=== PATIENT | male | born 1945 | race Caucasian/White ===

== ENCOUNTER 2018-07-01 13:03 | Outpatient (CLI) | payer MEDICARE, BC ==
[~2018-07-01] VITALS: Ht 185.4 cm; Wt 103.4 kg
[2018-07-01 14:33] VITALS: BP 110/75
[2018-07-01] MEDS ORDERED: ELIQUIS5 MG PO (14:46)
[2018-07-01] MEDS ORDERED: LEVOTHYROXINE125 MCG ORAL (14:46)
[2018-07-01] MEDS ORDERED: METFORMIN HCL850 M1 ORAL (14:46)
[2018-07-01] MEDS ORDERED: AZOR 10-20 MG1 EACH ORAL (14:46)
[2018-07-01] MEDS ORDERED: FOLIC ACID1 MG ORAL (14:46)
[2018-07-01] MEDS ORDERED: BYSTOLIC10 MG ORAL (14:46)
[2018-07-01] MEDS ORDERED: CRESTOR20 MG ORAL (14:46)
[2018-07-01] MEDS ORDERED: DONEPEZIL HCL10 M2 ORAL (14:46)
--- NOTE | 2018-07-02 02:30 | Consultation ---
DATE OF CONSULTATION: 07/01/2018 REASON FOR CONSULTATION: Referral for screening colonoscopy. HISTORY: This is a very pleasant 73-year-old male with multiple medical problems, which I will dictate in a second, who was referred to us for further evaluation for screening colonoscopy. He had a colonoscopy about 5 years ago. He had two polyps at that time. Denies any gastrointestinal symptoms at this time. PAST MEDICAL HISTORY: 1. Atrial fibrillation. 2. Hypertension. 3. Hypercholesterolemia. 4. Diverticulosis. 5. Sleep apnea. 6. Hypothyroidism. PAST SURGICAL HISTORY: Tonsillectomy. MEDICATIONS: Please see medication reconciliation list. ALLERGIES: No known allergies. FAMILY HISTORY: Father had a lung cancer and mom had breast cancer. SOCIAL HISTORY: The patient denies any tobacco, alcohol, or drug abuse. REVIEW OF SYSTEMS: A 10-point review of systems was performed and pertinent positives in HPI. PHYSICAL EXAMINATION: VITAL SIGNS: The patient is afebrile. Blood pressure is 110/75, pulse 84, and respirations 20. HEENT: Normocephalic and atraumatic. Sclerae anicteric. NECK: Supple. No evidence of lymphadenopathy. CARDIOVASCULAR: Regular rhythm. Plus S1 and S2. No obvious murmur. LUNGS: Clear to auscultation bilaterally. ABDOMEN: Soft bowel sounds. Soft and nontender. No rebound. No guarding. No peritoneal sign. EXTREMITIES: No cyanosis. No clubbing. No edema. ASSESSMENT: A 73-year-old male with history of colonic polyps in the past was referred to us for screening colonoscopy evaluation. PLAN: The patient is scheduled for 07/23/2018 for colonoscopy. He was given instruction for . The patient was also told to stop the Eliquis two days before the procedure. I want to thank, , for this kind referral. Dagoberto Ruby M.D. DR: ARIEL JOB#: [id number] CC:
== END 2018-07-01 15:53 | disposition home or self-care (01) ==
LOC: PAN 13:03
DX: K57.90 Diverticulosis of intestine, part unspecified, without perforation or abscess without bleeding (principal); Z86.010 Personal history of colon polyps; I10 Essential (primary) hypertension; E78.00 Pure hypercholesterolemia, unspecified; G47.30 Sleep apnea, unspecified; E03.9 Hypothyroidism, unspecified; Z80.1 Family history of malignant neoplasm of trachea, bronchus and lung; Z80.3 Family history of malignant neoplasm of breast

== ENCOUNTER 2018-08-12 13:05 | Outpatient (CLI) | payer MEDICARE, BC ==
[~2018-08-12 13:05] MED LIST: AZOR 10-20 MG1 EACH ORAL; BYSTOLIC10 MG ORAL; CRESTOR20 MG ORAL; DONEPEZIL HCL10 M2 ORAL; ELIQUIS5 MG PO; FOLIC ACID1 MG ORAL; LEVOTHYROXINE125 MCG ORAL; METFORMIN HCL850 M1 ORAL
--- NOTE | 2018-08-12 13:26 | GI Progress Note ---
Assessment/Plan Problems: (1) Diverticulosis ICD Codes: K57.90 - Diverticulosis of intestine, part unspecified, without perforation or abscess without bleeding SNOMED: 405932962 (2) Colon polyps ICD Codes: K63.5 - Polyp of colon SNOMED: 39877052 (3) Hemorrhoids ICD Codes: K64.9 - Unspecified hemorrhoids SNOMED: 39992937 Assessment/Plan repeat colon in 3 years Subjective Gastrointestinal/Abdominal: Reports: no symptoms Objective General Appearance: alert Cardiovascular: normal rate Respiratory/Chest: lungs clear Abdominal Exam: normal bowel sounds, non tender, soft Extremities: non-tender Dagoberto Ruby MD Aug 12, 2018 13:26
[2018-08-12 15:41] VITALS: BP 126/73
== END 2018-08-12 15:00 | disposition home or self-care (01) ==
LOC: PAN 13:05
DX: K57.90 Diverticulosis of intestine, part unspecified, without perforation or abscess without bleeding (principal); K63.5 Polyp of colon; K64.9 Unspecified hemorrhoids
CPT/HCPCS: 99212